=== PATIENT | male | born 1970 | race Caucasian/White ===

== ENCOUNTER 2021-02-12 20:21 | Emergency (ER) | payer BC, OTHER ==
[2021-02-12 20:46] VITALS: BP 132/92; PULSE 71; TEMP 98.4; BMI 31.0
[2021-02-12] MEDS ORDERED: RABIES IMMUNE GLOBULIN 300 UNITS/1 ML VIAL IM ONE (22:50)
[2021-02-12] MEDS ORDERED: DIPHTH,PERTUSS(ACELL),TET 0.5 ML DISP.SYRIN IM ONE ×2 (22:50→23:32)
[2021-02-12] MEDS ORDERED: RABIES VACCINE (PCEC)/PF 2.5 UNIT/VIAL IM ONE ×2 (22:50→23:32)
== END 2021-02-13 01:23 | disposition home or self-care (01) ==
LOC: JERFT 20:21 → JER 20:21
PROC: 3E0234Z Introduction of Serum, Toxoid and Vaccine into Muscle, Percutaneous Approach (ICD-10-PCS; principal; 2021-02-12)
PROC: 3E0234Z Introduction of Serum, Toxoid and Vaccine into Muscle, Percutaneous Approach (ICD-10-PCS; 2021-02-12)
DX: S51.852A Open bite of left forearm, initial encounter (principal); W54.0XXA Bitten by dog, initial encounter
CPT/HCPCS: 90375; 90675; 90715; 99283-25

== ENCOUNTER 2021-02-16 10:22 | Emergency (ER) | payer BC ==
[2021-02-16 10:39] VITALS: BP 130/84; PULSE 78; TEMP 97.9; BMI 35.4
[2021-02-16] MEDS ORDERED: DIPHTH,PERTUSS(ACELL),TET 0.5 ML DISP.SYRIN IM ONE (11:14)
[2021-02-16] MEDS ORDERED: RABIES VACCINE (PCEC)/PF 2.5 UNIT/VIAL IM ONE ×2 (11:16→11:22)
== END 2021-02-16 11:43 | disposition home or self-care (01) ==
LOC: JER 10:22 → JERFT 10:22
PROC: 3E0234Z Introduction of Serum, Toxoid and Vaccine into Muscle, Percutaneous Approach (ICD-10-PCS; principal; 2021-02-16)
PROC: 3E0234Z Introduction of Serum, Toxoid and Vaccine into Muscle, Percutaneous Approach (ICD-10-PCS; 2021-02-16)
DX: S51.852A Open bite of left forearm, initial encounter (principal); W54.0XXA Bitten by dog, initial encounter; Y92.9 Unspecified place or not applicable
CPT/HCPCS: 90675; 99283-25

== ENCOUNTER 2021-02-21 08:27 | Emergency (ER) | payer BC ==
[2021-02-21 08:34] VITALS: BP 143/90; PULSE 100; TEMP 97.7; BMI 31.0
[2021-02-21] MEDS ORDERED: RABIES VACCINE (PCEC)/PF 2.5 UNIT/VIAL IM ONE ×2 (09:25→09:33)
== END 2021-02-21 09:47 | disposition home or self-care (01) ==
LOC: JERFT 08:27
PROC: 3E0234Z Introduction of Serum, Toxoid and Vaccine into Muscle, Percutaneous Approach (ICD-10-PCS; principal; 2021-02-21)
DX: Z29.14 Encounter for prophylactic rabies immune globulin (principal)
CPT/HCPCS: 90675; 99284-25

== ENCOUNTER 2021-02-27 09:13 | Emergency (ER) | payer BC ==
[2021-02-27 09:32] VITALS: BP 124/78; PULSE 94; TEMP 98.4; BMI 31.0
[2021-02-27] MEDS ORDERED: RABIES VACCINE (PCEC)/PF 2.5 UNIT/VIAL IM ONE ×2 (10:35→10:43)
== END 2021-02-27 11:21 | disposition home or self-care (01) ==
LOC: JERFT 09:13
PROC: 3E0234Z Introduction of Serum, Toxoid and Vaccine into Muscle, Percutaneous Approach (ICD-10-PCS; principal; 2021-02-27)
DX: Z29.14 Encounter for prophylactic rabies immune globulin (principal)
CPT/HCPCS: 90675; 99284-25